=== PATIENT | female | born 1980 | race Caucasian/White ===

== ENCOUNTER 2019-03-20 08:04 | Emergency (ER) | payer OTHER, SELFPAY ==
--- NOTE | 2019-03-20 08:29 | ED.GENADULT ---
HPI - General Adult General Chief complaint: Upper Respiratory Infection Stated complaint: Sore throat Time Seen by Provider: 03/20/19 08:57 Source: patient and RN notes reviewed Mode of arrival: ambulatory Limitations: no limitations History of Present Illness HPI narrative: This patient's had onset of a sore throat that began last night and is still present this morning. There is been a little bit of clear nasal drainage but no purulent nasal drainage. Has not had any ear. No rashes. She has had no cough. She has had no nausea, no vomiting, no diarrhea. There is been no fever. She has had no hematuria, no dysuria, no pyuria. No known exposure to anyone with strep throat, mono, influenza, bronchitis, pneumonia that she is aware of. They have not been traveling. Related Data Home Medications Medication Instructions Recorded Confirmed No Home Medications 03/20/19 03/20/19 Review of Systems Review of Systems: Narrative: CONSTITUTIONAL: Denies fever, chills, or sweats. Noncontributory except as pertains to the past medical history and history of present illness. EYES: Denies visual changes, redness, or discharge. ENT: Denies rhinorrhea, congestion, sore throat, or otalgia. CARDIOVASCULAR: Denies chest pain, palpitations, or edema. RESPIRATORY: Denies cough or dyspnea. GASTROINTESTINAL: Denies abdominal pain, nausea, vomiting, or diarrhea. GENITOURINARY: Denies dysuria or hematuria. SKIN: Denies rash or itching. MUSCULOSKELETAL: Denies back pain, joint pain, or myalgia. NEUROLOGIC: Denies headache, numbness, or weakness. PSYCHIATRIC: Denies anxiety or depression. PMFSH Comments At time of signature, I have reviewed and agree with nursing past medical, surgical, social, and family history.Please see nursing chart for further information. There is no relevant family history pertinent to the presenting complaint. Exam Narrative: Exam Narrative: GENERAL: Well-appearing, well-nourished, and in no acute distress. HEAD: Normocephalic, atraumatic. EYES: PERRLA and EOMI. EARS: TM's clear bilaterally and the canals are clear. NOSE: Nares clear, no rhinorrhea or epistaxis. THROAT:Mucous membranes moist.Oropharynx is mildly erythematous but no exudates are present. NECK: Supple. No adenopathy of the neck, supraclavicular, axillary, or inguinal areas. RESPIRATORY: No respiratory distress. Airway patent. Respirations non-labored. Clear to auscultation. There are no wheezes, no rales, no retractions, no use accessory muscle respirations present. Patient is not cyanotic and not dyspneic. There is no cough during the exam. Pulse ox on room air is 99% current temperature is 36.7 ?C. HEART: Regular rate and rhythm. No murmur heard. Normal peripheral pulses. ABDOMEN: Soft, nontender, nondistended, normal active bowel sounds.No masses. No rebound or guarding, No organomegaly. There is no CVA pain. No pain McBurney's point. The patient has a negative Mejia sign and negative Rovsing sign. There are no pulsatile masses or audible bruits. EXTREMITIES: No clubbing/cyanosis/ edema. Normal strength & range of motion. SKIN: Warm, dry.Normal Color. No rash or skin lesions. Patient is well-nourished well-hydrated has moist mucous membranes and no tenting of the skin. NEURO: Alert and oriented. CN 2-12 grossly intact. No focal deficits. PSYCH: Normal mood and affect. Course Vital Signs Vital signs: Vital Signs Temperature 36.7 C 03/20/19 08:45 Pulse Rate 88 03/20/19 08:45 Respiratory Rate 16 03/20/19 08:45 Blood Pressure 96/65 L 03/20/19 08:45 Pulse Oximetry 99 03/20/19 08:45 Temperature 36.7 C 03/20/19 08:45 Pulse Rate 88 03/20/19 08:45 Respiratory Rate 16 03/20/19 08:45 Blood Pressure 96/65 L 03/20/19 08:45 Pulse Oximetry 99 03/20/19 08:45 Afebrile and the other vital signs within normal limits. Medical Decision Making MDM Narrative Medical decision making narrative: Pharyngitis, possible stre
[2019-03-20 08:45] VITALS: BP 96/65; PULSE 88; RESP 16; TEMP 36.7; O2SAT 99
== END 2019-03-20 09:15 | disposition home or self-care (01) ==
PROVIDERS: Emergency Provider Family Medicine
DX: J02.9 Acute pharyngitis, unspecified (principal)
CPT/HCPCS: 87081; 87880; 99203; G0463